=== PATIENT | male | born 1960 | race Caucasian/White ===

== ENCOUNTER → 2019-07-03 | Outpatient (CLI) | payer OTHER ==
[2019-07-04 06:09] LABS: THYROID PEROXIDASE (TPO) AB 8 IU/mL (0-34)
[2019-07-04 14:07] LABS: THYROGLOBULIN ANTIBODY <1.0 IU/mL (0.0-0.9)
== END | disposition home or self-care (01) ==
LOC: LAB 11:33
PROVIDERS: Physician Assistant
DX: E05.90 Thyrotoxicosis, unspecified without thyrotoxic crisis or storm (principal)

== ENCOUNTER → 2020-02-13 | Outpatient (CLI) | payer OTHER | END | disposition home or self-care (01) | LOC: COVID19 00:23 | PROVIDERS: ATTEND Internal Medicine | DX: Z20.828 Contact with and (suspected) exposure to other viral communicable diseases (principal) ==

== ENCOUNTER → 2020-07-17 | Outpatient (CLI) | payer OTHER ==
[2020-07-18 12:07] LABS: PROSTATE SPECIFIC AG FREE 1.04 ng/mL; PROSTATE SPECIFIC AG, SERUM 5.1 ng/mL (0.0-4.0)
== END | disposition home or self-care (01) ==
LOC: LAB 09:57
PROVIDERS: ATTEND Nurse Practitioner Primary Care
DX: R97.20 Elevated prostate specific antigen [PSA] (principal)

== ENCOUNTER 2020-12-11 17:37 | Emergency (ER) | payer OTHER ==
[~2020-12-11] VITALS: Ht 175.2 cm; Wt 101.6 kg
[2020-12-11] MEDS ORDERED: HYDROCODONE-AC1 EAC1 PO (21:37)
== END 2020-12-11 21:40 | disposition home or self-care (01) ==
LOC: ED 17:37
DX: S20.219A Contusion of unspecified front wall of thorax, initial encounter (principal); S30.811A Abrasion of abdominal wall, initial encounter; W11.XXXA Fall on and from ladder, initial encounter; Y93.89 Activity, other specified; Y92.89 Other specified places as the place of occurrence of the external cause; Y99.9 Unspecified external cause status

== ENCOUNTER → 2021-06-19 | Outpatient (CLI) | payer MEDICARE ==
[~2021-06-19] MED LIST: HYDROCODONE-AC1 EAC1 PO
[2021-06-19 11:20] LABS: HEMATOCRIT 46.3 % (42.0-52.0); MEAN CELL VOLUME 87.9 fl (80.0-94.0); MEAN CORPUSCULAR HGB 29.4 pg (27.0-31.0); MEAN CORPUSCULAR HGB CONC 33.5 g/dl (33.0-37.0); MEAN PLATELET VOLUME 10.2 fl (9.6-12.3); RED BLOOD COUNT 5.27 10*6/uL (4.50-5.90); RED CELL DISTRI WIDTH 13.1 % (0-14.5); WHITE BLOOD COUNT 6.3 10*3/uL (4.8-10.8)
[2021-06-19 11:38] LABS: ALBUMIN 3.7 gm/dl (3.1-4.5); BUN 14 mg/dl (7-24); CHLORIDE 101 mmol/L (98-107); CHOLESTEROL 171 mg/dL (<200); CREATININE 1.01 mg/dL (0.70-1.30); POTASSIUM 3.9 mmol/L (3.5-5.1); SGOT/AST 31 IU/L (3-35); SGPT/ALT 71 U/L (12-78); SODIUM 134 mmol/L (136-145); TOTAL PROTEIN 7.7 gm/dL (6.4-8.2); TRIGLYCERIDES 277 mg/dl (<150)
[2021-06-19 11:48] LABS: ALKALINE PHOSPHATASE 55 U/L (45-117); LDL CHOLESTEROL 85 mg/dL (9-159)
== END | disposition home or self-care (01) ==
LOC: LAB 10:19
PROVIDERS: Physician Assistant; ATTEND Urology
DX: C61 Malignant neoplasm of prostate (principal); E11.9 Type 2 diabetes mellitus without complications; F41.9 Anxiety disorder, unspecified; F51.01 Primary insomnia; I10 Essential (primary) hypertension; F17.210 Nicotine dependence, cigarettes, uncomplicated

== ENCOUNTER → 2021-07-31 | Day surgery (SDC) | payer MEDICARE ==
[~2021-07-31] VITALS: Ht 175.2 cm; Wt 99.8 kg
[~2021-07-31] MED LIST changes: +ATENOLOL25 MG PO; +HYDROXYZINE HCL25 MG PO; +NORVASC5 MG PO; +Percocet 325 MG1 TAB PO; +ZESTORETIC 10-1 EACH PO
[2021-07-31 06:51] VITALS: BP 138/87
[2021-07-31 07:38] VITALS: BP 105/56
[2021-07-31 07:50] VITALS: BP 99/66
[2021-07-31 08:10] VITALS: BP 135/76
== END | disposition home or self-care (01) ==
LOC: SDC 07-28 08:00
PROVIDERS: ATTEND Surgery
DX: Z12.11 Encounter for screening for malignant neoplasm of colon (principal); I10 Essential (primary) hypertension; Z85.46 Personal history of malignant neoplasm of prostate; Z98.890 Other specified postprocedural states; F17.210 Nicotine dependence, cigarettes, uncomplicated; Z79.899 Other long term (current) drug therapy
CPT/HCPCS: 00812; G0121

== ENCOUNTER → 2021-10-02 | Outpatient (CLI) | payer OTHER | END | disposition home or self-care (01) | LOC: LAB 09:13 | PROVIDERS: ATTEND Urology | DX: C61 Malignant neoplasm of prostate (principal) ==

== ENCOUNTER → 2022-05-06 | Outpatient (CLI) | payer OTHER | END | disposition home or self-care (01) | LOC: LAB 10:54 | PROVIDERS: ATTEND Urology | DX: C61 Malignant neoplasm of prostate (principal) ==

== ENCOUNTER → 2022-11-06 | Outpatient (CLI) | payer OTHER | END | disposition home or self-care (01) | LOC: LAB 13:21 | PROVIDERS: ATTEND Urology | DX: C61 Malignant neoplasm of prostate (principal) ==

== ENCOUNTER → 2023-05-19 | Outpatient (CLI) | payer OTHER | END | disposition home or self-care (01) | LOC: LAB 10:14 | PROVIDERS: ATTEND Urology | DX: C61 Malignant neoplasm of prostate (principal) ==

== ENCOUNTER → 2023-11-30 | Outpatient (CLI) | payer OTHER | LOC: LAB 14:15 | PROVIDERS: ATTEND Urology | DX: C61 Malignant neoplasm of prostate (principal) ==

== ENCOUNTER → 2024-03-02 | Outpatient (CLI) | payer OTHER | END | disposition home or self-care (01) | LOC: LAB 14:22 | PROVIDERS: ATTEND Urology | DX: C61 Malignant neoplasm of prostate (principal) ==